=== PATIENT | female | born 1970 | race African-American/Black ===

== ENCOUNTER 2021-06-15 11:19 | Outpatient (REF) | payer OTHER, SELFPAY ==
--- NOTE | ~2021-06-15 | MM_ITS ---
EXAMINATION: MM SCREENING DIGITAL BREAST TOMOSYNTHESIS, BILATERAL CLINICAL INFORMATION: Screening. Asymptomatic. The lifetime risk of breast cancer based on the Tyrer-Cuzick Model is 8%. COMPARISON: Mammography: 06/09/2020, 01/31/2019, 01/11/2018 TECHNIQUE: Digital breast tomosynthesis is performed in both the craniocaudal and mediolateral oblique views along with computer-aided detection (CAD). Synthesized 2D images are generated from the tomosynthesis. Additional right CC, left CC x2 and bilateral MLO views are provided. FINDINGS: There are scattered areas of fibroglandular density (ACR BI-RADS breast composition Category b). There are no significant masses, abnormal calcifications, or other abnormalities. Breast tissue composition borders on predominantly fatty. Background stromal and fibroglandular densities are stable. The axilla and skin contours are unremarkable. No significant changes. MM/MM tomosynthesis screening BI IMPRESSION: No mammographic evidence of malignancy. ASSESSMENT: BI-RADS 1: Negative RECOMMENDATION: Routine annual mammography screening. This patient's information was entered into a reminder system with a target due date for their next mammogram.
== END 2021-06-15 11:20 | disposition home or self-care (01) ==
LOC: HO.MAMMO 11:19
PROVIDERS: Visit Provider Internal Medicine
DX: Z12.31 Encounter for screening mammogram for malignant neoplasm of breast (principal)
CPT/HCPCS: 77063; 77067

== ENCOUNTER 2022-06-17 09:57 | Outpatient (REF) | payer OTHER, SELFPAY ==
--- NOTE | ~2022-06-17 | MM_ITS ---
EXAMINATION: MM SCREENING DIGITAL BREAST TOMOSYNTHESIS, BILATERAL CLINICAL INFORMATION: Screening. Asymptomatic. The lifetime risk of breast cancer based on the Tyrer-Cuzick Model is 11%. COMPARISON: Mammography: 06/15/2021, 06/09/2020, 01/31/2019, 01/21/2018, 11/10/2016 TECHNIQUE: Digital breast tomosynthesis is performed in both the craniocaudal and mediolateral oblique views along with computer-aided detection (CAD). Synthesized 2D images are generated from the tomosynthesis. Additional left CC view is provided. FINDINGS: There are scattered areas of fibroglandular density (ACR BI-RADS breast composition Category b). Parenchymal pattern is similar to prior studies and there is no interval mass or architectural abnormality or developing density. Small stable nodularity close to skin surface nipple areolar margin is similar to prior studies. No abnormal calcifications. The axilla and skin contours are unremarkable. MM/MM tomosynthesis screening BI IMPRESSION: No mammographic evidence of malignancy. ASSESSMENT: BI-RADS 2: Benign RECOMMENDATION: Routine annual mammography screening. This patient's information was entered into a reminder system with a target due date for their next mammogram.
== END 2022-06-17 09:58 | disposition home or self-care (01) ==
LOC: HO.MAMMO 09:57
PROVIDERS: PCP Internal Medicine; Visit Provider Internal Medicine
DX: Z12.31 Encounter for screening mammogram for malignant neoplasm of breast (principal)
CPT/HCPCS: 77063; 77067

== ENCOUNTER 2023-06-24 09:40 | Outpatient (REF) | payer OTHER, SELFPAY | END 2023-06-24 09:41 | disposition home or self-care (01) | LOC: HO.MAMMO 09:40 | PROVIDERS: PCP Internal Medicine; Visit Provider Internal Medicine | DX: Z12.31 Encounter for screening mammogram for malignant neoplasm of breast (principal) | CPT/HCPCS: 77063; 77067 ==

== ENCOUNTER → 2023-06-24 10:00 | Outpatient (BNV) | payer OTHER, SELFPAY | PROVIDERS: PCP Internal Medicine; Visit Provider Radiology Diagnostic Radiology | DX: Z12.31 Encounter for screening mammogram for malignant neoplasm of breast (principal) | CPT/HCPCS: 77063; 77067 ==

== ENCOUNTER 2024-06-25 11:10 | Outpatient (REF) | payer OTHER, SELFPAY ==
--- NOTE | ~2024-06-25 | MM_ITS ---
EXAMINATION: MM SCREENING DIGITAL BREAST TOMOSYNTHESIS, BILATERAL CLINICAL INFORMATION: Screening. Asymptomatic. COMPARISON: Mammography: This study is compared with prior exams dating back to 2019. TECHNIQUE: Digital breast tomosynthesis is performed in both the craniocaudal and mediolateral oblique views along with computer-aided detection (CAD). Synthesized 2D images are generated from the tomosynthesis. FINDINGS: There are scattered areas of fibroglandular density (ACR BI-RADS breast composition Category b). There are no significant masses, abnormal calcifications, or other abnormalities. MM/MM tomosynthesis screening BI IMPRESSION: No mammographic evidence of malignancy. ASSESSMENT: BI-RADS BI-RADS 1 - Negative RECOMMENDATION: Routine annual mammography screening. 1 year F/U This examination should not preclude the clinical evaluation of a suspicious palpable abnormality. This patient's information was entered into a reminder system with a target due date for their next mammogram. Electronically signed by: Lety Hauser MD 07/23/2024 09:57 AM EDT
== END 2024-06-25 11:11 | disposition home or self-care (01) ==
LOC: HO.MAMMO 11:10
PROVIDERS: PCP Internal Medicine; Visit Provider Internal Medicine
DX: Z12.31 Encounter for screening mammogram for malignant neoplasm of breast (principal)
CPT/HCPCS: 77063; 77067

== ENCOUNTER → 2024-06-25 11:15 | Outpatient (BNV) | payer OTHER, SELFPAY | PROVIDERS: PCP Internal Medicine; Visit Provider Radiology Diagnostic Radiology | DX: Z12.31 Encounter for screening mammogram for malignant neoplasm of breast (principal) | CPT/HCPCS: 77063; 77067 ==

== ENCOUNTER 2024-07-06 09:49 | Outpatient (AMB) | payer OTHER, SELFPAY ==
--- NOTE | 2024-07-06 09:50 | A.OFFVIS_ITS ---
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 Patient states she'd like to discuss MRI results an discuss treatment plans for pain relief. IMPRESSION: 1. Proximal patellar tendinosis. 2. Mild trochlea chondrosis. 3. No meniscus or ligament tear. 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 Patient states she'd like to discuss MRI results. She had an MRI of her knee and her hip because of some radiating pain but that has resolved and she feels was likely secondary to fibroids. Her right knee is not really bothering her much. She goes to the gym and does exercises and there is occasional pain but she really can not describe any significant disability. She is more worried that she did not understand clearly what the results were MRI were. Physical Exam Vital Signs: BMI result Body Mass Index 35.5 Extrem Other: Normal gait Full range of motion right knee No effusion Results Reviewed Results Reviewed: I personally reviewed the MR images. IMPRESSION: 1. Proximal patellar tendinosis. 2. Mild trochlea chondrosis. 3. No meniscus or ligament tear. Assessment & Plan Assessment & Plan (1) Chondromalacia patellae of right knee: Code(s): M22.41 - Chondromalacia patellae, right knee Category: Medical Plan: This is a 53-year-old woman with some chondral softening of the patellofemoral joint on MRI. I explained this to her and described treatment options of which I do not really recommend anything except continue on activity as tolerated. I probably would recommend that she does not try deep heavy squatting with weight. Having said that she is pretty asymptomatic and I do not think any additional treatment is required. She understands and will let me know if something changes. Coding Level of Care Code New Pt Level 3 (61132) Diagnoses Chondromalacia patellae of right knee M22.41
[2024-07-06 09:52] VITALS: BMI 35.5
== END 2024-07-06 12:34 | disposition home or self-care (01) ==
PROVIDERS: PCP Internal Medicine; Visit Provider Orthopaedic Surgery
DX: M22.41 Chondromalacia patellae, right knee (principal)
CPT/HCPCS: 99203

== ENCOUNTER → 2024-07-06 09:49 | Outpatient (BNVA) | payer OTHER, SELFPAY | PROVIDERS: PCP Internal Medicine; Visit Provider Orthopaedic Surgery | DX: M22.41 Chondromalacia patellae, right knee (principal) | CPT/HCPCS: 99202 ==

== ENCOUNTER 2025-08-08 07:59 | Outpatient (REF) | payer OTHER, SELFPAY ==
--- OUTSIDE RECORDS SUMMARY | 2025-08-08 08:02 | XMS_ITS | Clinical Summary ---
Author Organization [facility], Address [address] [place] [address] [place] [address] Phone Care Team Providers Care Handle Finisher Name Role Phone Tony Castaneda MD Primary Care Provider Unav ailable Allergies No known active allergies Medications metFORMIN XR (GLUCOPHATE-XR) 500 MG 24 hr tablet Take 500 mg by mouth 1 (one) time each day with dinner 04/04/2020 Active senna (SENOKOT) 8.6 MG tablet Take 2 tablets by mouth 1 (one) time each day Active HealthyLax 17 g packet TAKE 17G MIXED WITH 8 OUNCES OF WATER, JUICE, SODA, COFFEE OR TEA ONCE A DAY NEEDED FOR CONSTIPATION . 01/28/2022 Active docusate sodium (COLACE) 100 MG capsule Take 100 mg by mouth in the morning and 100 mg in the evening. Active atorvastatin (Lipitor) 20 MG tablet Take 1 tablet (20 mg total) by mouth 1 (one) time each day 90 tablet 3 02/18/2025 6 Active carvedilol (COREG) 25 MG tablet Take 1 tablet (25 mg total) by mouth in the morning and 1 tablet (25 mg total) in the evening. 180 tablet 3 05/28/2025 6 Active NIFEdipine XL (PROCARDIA XL) 30 MG 24 hr tablet Take 1 tablet (30 mg total) by mouth in the morning and 1 tablet (30 mg total) in the evening. Do not crush, chew, or split. 180 tablet 3 05/28/2025 6 Active fish oil (OMEGA-3) 500 MG capsule Take 1 capsule (500 mg total) by mouth 1 (one) time each day 90 capsule 3 06/04/2025 Active hydroCHLOROthia zide 12.5 MG tablet Take 1 tablet (12.5 mg total) by mouth 1 (one) time each day 90 tablet 3 06/04/2025 Active hydrALAZINE 50 MG tablet Take 1 tablet (50 mg total) by mouth in the morning and 1 tablet (50 mg total) at noon and 1 tablet (50 mg total) in the evening. Take with meals. 270 tablet 3 06/04/2025 Active glipiZIDE (GLUCOTROL) 5 MG tablet Take 1 tablet (5 mg total) by mouth in the morning and 1 tablet (5 mg total) in the evening. Take before meals. 180 tablet 3 06/04/2025 Active dilTIAZem CD (CARDIZEM CD) 240 MG 24 hr capsule Take 1 capsule (240 mg total) by mouth at bed time 90 capsule 3 06/04/2025 Active ergocalciferol (Drisdol) 1.25 MG (17081 UT) capsule Take 1 capsule (50,000 Units total) by mouth 1 (one) time per week 12 capsule 3 06/05/2025 Active Active Problems Problem Noted Date Diagnosed Date Stage 3b chronic kidney disease 12/11/2024 Renal disorder due to type 2 diabetes mellitus 1 12/21/2019 Proteinuria 04/11/2020 Stage 3a chronic kidney disease 04/08/2020 Overview (11/10/2020): Update for Diagnosis Load Hypertensive disorder 04/08/2020 Type 2 diabetes mellitus Overview (10/25/2022): Nephropathy Resolved Problems Problem Noted Date Diagnosed Date Resolved Date Other iron deficiency anemia 10/20/2020 05/01/2021 Hypertriglyceridemia 10/20/2020 021 Other iron deficiency anemia 04/14/2020 05/01/2021 IgA nephropathy 04/11/2020 05/01/2021 Acute nontraumatic kidney injury 04/08/2020 05/01/2021 Sleep apnea 04/08/2020 05/01/2021 Diabetes mellitus 04/21/2015 05/01/2021 Obesity 04/21/2015 05/01/2021 Encounters Date Type Department Care Team Description 06/11/2025 2:15 PM EDT Office Visit [facility] [address] [place] [address] Chandan Pa MD Stage 3a chronic kidney disease (HCC) (Primary Dx); Renal disorder due to type 2 diabetes mellitus <Other diabetic kidney complication> (HCC); Hypertensive disorder 06/05/2025 Refill [facility] [address] [place] [address] Ward, Erika 06/04/2025 Orders Only [facility] [address] [place] [phone] Erika Ward Type 2 diabetes mellitus, not otherwise specified (HCC) (Primary Dx); Renal disorder due to type 2 diabetes mellitus <Diabetic nephropathy> (HCC); Stage 3b chronic kidney disease (HCC); Vitamin D deficiency, not otherwise specified 06/04/2025 Refill [facility] [address] Po [address] [address] [place] [phone] Ward, Erika 06/04/2025 Refill [facility] [address] [place] [phone] Ward, Erika 05/28/2025 Orders Only [facility] [address] [place] [address] WardErika valdovinos 05/28/2025 Refill [facility] [address] [place] [address] Erika Ward from Last 3 Months Family History Medical History Relation Comments Diabetes Mother Hypertension Mother Relation Status Comments Father Alive Mother Social History Tobacco Use Types Packs/Day Years Used Date Smoking Tobacco: Never Tobacco Cessation:Counseling Given: Not Answered Alcohol Use Standard Drinks/Week Comments Yes 0 (1 standard drink = 0.6 oz pure alcohol) Alcoholic Drinks/day: Occasional social drink Comments Unknown Sex and Gender Information Value Date Recorded Sex Assigned at Not on file Legal Sex Female 4:34 PM EST Gender Identity Not on file Sexual Orientation Not on file Last Filed Vital Signs Vital Sign Reading Time Taken Comments Blood Pressure 152/92 04/18/2023 5:30 PM EDT Pulse 77 10/11/2019 12:00 PM EST Temperature - - Respiratory Rate 16 10/11/2019 12:00 PM EST Oxygen Saturation - - Inhaled Oxygen Concentration - - Weight 105 kg (231 lb 9.6 oz) 04/18/2023 5:30 PM EDT Height 167.6 cm (5' 6 ) 04/18/2023 5:30 PM EDT Body Mass Index 37.38 04/18/2023 5:30 PM EDT Plan of Treatment Upcoming Encounters Date Type Department Care Team (Late st Contact Info) Description 12/24/2025 3:00 PM EST Office Visit [facility], [address] [place] [phone] Chandan Pa MD [address] [place] [phone] Health Maintenance Due Date Last Done Comments Breast Cancer Screening 1971 Pneumococcal Vaccine: 50+ Ye ars (1 of 2 - PCV) 1990 Diabetes: Hemoglobin A1C 09/06/2025 025, 03/28/2025, 12/13/2024, Additional history exists Colorectal Cancer Screening: Annual FOBT Discontinued Colorectal Cancer Screening: Colonoscopy Discontinued Colorectal Cancer Screening: Sigmoidoscopy Discontinued Diabetes: Ophthalmology Exam Discontinued Diabetes: Pedal Pulse Checked Discontinued Diabetes: Sensory Foot Exam Discontinued Diabetes: Visual Foot Exam Discontinued Hepatitis B Vaccine Discontinued Influenza Vaccine Discontinued Procedures Procedure Name Priority Date/Time Associated Diagnosis Comments HEMOGLOBIN A1C Routine 06/06/2025 8:39 AM EDT Type 2 diabetes mellitus, not otherwise specified (HCC) Renal disorder due to type 2 diabetes mellitus <Diabetic nephropathy> (HCC) LIPID PANEL Routine 06/06/2025 8:39 AM EDT Stage 3b chronic kidney disease (HCC) PTH, INTACT Routine 06/06/2025 8:39 AM EDT Stage 3b chronic kidney disease (HCC) URIC ACID Routine 06/06/2025 8:39 AM EDT Stage 3b chronic kidney disease (HCC) VITAMIN D 25 HYDROXY Routine 06/06/2025 8:39 AM EDT Vitamin D deficiency, not otherwise specified PROTEIN / CREATININE RATIO, URINE Routine 06/06/2025 8:39 AM EDT Stage 3b chronic kidney disease (HCC) URINALYSIS WITH MICROSCOPIC Routine 06/06/2025 8:39 AM EDT Stage 3b chronic kidney disease (HCC) RENAL FUNCTION PANEL Routine 06/06/2025 8:39 AM EDT Stage 3b chronic kidney disease (HCC) CBC AND DIFFERENTIAL Routine 06/06/2025 8:39 AM EDT Stage 3b chronic kidney disease (HCC) MICROSCOPIC EXAMINATION - DO NOT USE Routine 06/06/2025 8:39 AM EDT from Last 3 Months Results * (ABNORMAL) Microscopic Examination (06/06/2025 8:39 AM EDT) WBC, Urine 0-5 0 - 5 /hpf [facility] RBC, Urine None seen 0 - 2 /hpf [facility] Squamous Epithelial, Urine >10(A) 0 - 10 /hpf [facility] Casts None seen None seen /lpf [facility] Bacteria, Urine Few None seen/Few [facility] 06/06/2025 8:39 AM EDT 06/06/2025 us Chandan Pa MD LAB MICROBIOLOGY - GENERAL ORDER SONNY Final Result [facility] [address] [place] [address] * Urine Protein / creatinine ratio (06/06/2025 8:39 AM EDT) Creatinine, Ur 143.9 Not Estab. mg/dL [facility] Protein, Ur 27.5 Not Estab. mg/dL [facility] Urine Protein/Creatin ine Ratio 191 0 - 200 mg/g [facility] Urine Urine specimen obtained by clean catch procedure / Unknown 06/06/2025 8:39 AM EDT 06/06/2025 Chandan Pa MD LAB URINE ORDERABLES Final Resul t [facility] [address] [place] [phone] * Vitamin D 25 hydroxy (06/06/2025 8:39 AM EDT) Vitamin D, 25-OH, Total 49.8 30.0 - 100.0 ng/mL [facility] Comment: Vitamin D deficiency has been defined by the [employer] of [employer] and an Endocrine Society practice guideline as a level of serum 25-OH vitamin D less than 20 ng/mL (1,2). The Endocrine Society went on to further define vitamin D insufficiency as a level between 21 and 29 ng/mL (2). 1. IOM ([employer] of Medicine). 2010. Dietary reference intakes for calcium and D. [place]: The National Academies Press. 2. Farhat MF, Jaime NC, Nino PANG, et al. Evaluation, treatment, and prevention of vitamin D deficiency: an Endocrine Society clinical practice guideline. JCEM. 2010; 96(7):1911-30. Blood Venous blood / Unknown 06/06/2025 8:39 AM EDT 06/06/2025 Chandan Pa MD LAB BLOOD ORDERABLES Final Resul t [facility] [address] [place] [address] * (ABNORMAL) Urinalysis with microscopic (06/06/2025 8:39 AM EDT) Specific [place], Urine 1.016 1.005 - 1.030 [facility] pH Urine 6.0 5.0 - 7.5 [facility] Color, Urine Yellow Yellow [facility] Appearance Urine Cloudy(A) Clear [facility] WBC Esterase Urine Negative Negative [facility] Protein, Ur 1+(A) Negative/Tra ce [facility] Glucose, Ur Negative Negative [facility] Ketones, Urine Negative Negative [facility] Blood Urine Negative Negative [facility] Bilirubin Urine Negative Negative [facility] Urobilinogen Urine 0.2 0.2 - 1.0 mg/dL [facility] [phone] Nitrite, Urine Negative Negative [facility] Microscopic Examination See below: [facility] Comment:Microscopic was roldan cated and was performed. Urine Urine specimen obtained by clean catch procedure / Unknown 06/06/2025 8:39 AM EDT 06/06/2025 us Chandan Pa MD LAB URINE ORDERABLES Final Resul t [facility] [address] [place] [address] * CBC and differential (06/06/2025 8:39 AM EDT) [facility] WBC 6.5 3.4 - 10.8 x10E3/uL [facility] RBC 4.87 3.77 - 5.28 x10E6/uL [facility] Hemoglobin 13.9 11.1 - 15.9 g/dL [facility] Hematocrit 43.3 34.0 - 46.6 % [facility] MCV 89 79 - 97 fL [facility] MCH 28.5 26.6 - 33.0 pg [facility] MCHC 32.1 31.5 - 35.7 g/dL [facility] RDW 14.8 11.7 - 15.4 % [facility] Platelets 314 150 - 450 x10E3/uL [facility] Neutrophils Relative 43 Not Estab. % [facility] Lymphocytes Relative 40 Not Estab. % [facility] Monocytes 12 Not Estab. % [facility] Eosinophils Relative 4 Not Estab. % [facility] Basophils Relative 1 Not Estab. % [facility] Neutrophils Absolute 2.9 1.4 - 7.0 x10E3/uL [facility] Lymphocytes Absolute 2.6 0.7 - 3.1 x10E3/uL [facility] Monocytes Absolute 0.8 0.1 - 0.9 x10E3/uL [facility] Eosinophils Absolute 0.2 0.0 - 0.4 x10E3/uL [facility] Basophils Absolute 0.0 0.0 - 0.2 x10E3/uL [facility] Immature Granulocytes 0 Not Estab. % [facility] Immature Grans (Absolute) 0.0 0.0 - 0.1 x10E3/uL [facility] Blood Venous blood / Unknown 06/06/2025 8:39 AM EDT 06/06/2025 us Chandan Pa MD LAB BLOOD ORDERABLES Final Resul t [facility] [address] [place] [address] * (ABNORMAL) Uric acid (06/06/2025 8:39 AM EDT) Pathologist [facility] Uric Acid 9.6(H) 3.0 - 7.2 mg/dL [facility] Comment:Therapeutic target f or gout patients: <6.0 Blood Venous blood / Unknown 06/06/2025 8:39 AM EDT 06/06/2025 us Chandan Pa MD LAB BLOOD ORDERABLES Final Resul t Performing Organization Address City/[facility]/ZIP Co de Phone Number [facility] [address] [place] [address] * PTH, intact (06/06/2025 8:39 AM EDT) Pathologist [facility] PTH 59 15 - 65 pg/mL [facility] Blood Venous blood / Unknown 06/06/2025 8:39 AM EDT 06/06/2025 us Chandan Pa MD LAB BLOOD ORDERABLES Final Resul t Performing Organization Address City/[facility] Co de Phone Number [facility] [address] [place] [address] * (ABNORMAL) Hemoglobin A1c (06/06/2025 8:39 AM EDT) Pathologist [facility] Hemoglobin A1C 6.3(H) 4.8 - 5.6 % [facility] Comment: Prediabetes: 5.7 - 6.4 Diabetes: >6.4 Glycemic control for adults with diabetes: <7.0 Blood Venous blood / Unknown 06/06/2025 8:39 AM EDT 06/06/2025 us Chandan Pa MD LAB BLOOD ORDERABLES Final Resul t [facility] [address] [place] [phone] * (ABNORMAL) Renal function panel (06/06/2025 8:39 AM EDT) Pathologist [facility] Glucose 100(H) 70 - 99 mg/dL [facility] BUN 14 6 - 24 mg/dL [facility] Creatinine 1.29(H) 0.57 - 1.00 mg/dL [facility] eGFR CKD-EPI CR 2020 50(L) >59 mL/min/1.7 3 [facility] BUN/Creatinine Ratio 11 9 - 23 [facility] Sodium 141 134 - 144 mmol/L [facility] Potassium 3.5 3.5 - 5.2 mmol/L [facility] Chloride 103 96 - 106 mmol/L [facility] Bicarbonate (CO2) 21 20 - 29 mmol/L [facility] Calcium 9.7 8.7 - 10.2 mg/dL [facility] Phosphorus 3.0 3.0 - 4.3 mg/dL [facility] Albumin 4.2 3.8 - 4.9 g/dL [facility] Blood Venous blood / Unknown 06/06/2025 8:39 AM EDT 06/06/2025 Chandan Pa MD LAB BLOOD ORDERABLES Final Resul t [facility] [address] [place] [phone] * (ABNORMAL) Lipid panel (06/06/2025 8:39 AM EDT) Cholesterol 155 100 - 199 mg/dL [facility] Triglycerides 149 0 - 149 mg/dL [facility] HDL 33(L) >39 mg/dL [facility] VLDL Cholesterol Ever 26 5 - 40 mg/dL [facility] LDL Calculated 96 0 - 99 mg/dL [facility] Blood Venous blood / Unknown 06/06/2025 8:39 AM EDT 06/06/2025 Chandan Pa MD LAB BLOOD ORDERABLES Final Resul t Performing Organization Address City/[facility]/ZIP Co de Phone Number [facility] [address] [place] [phone] from Last 3 Months Insurance [facility] ([id number]) Care Teams Handle Finisher Relationship Specialty Start Date End Date Tony Castaneda MD PCP - General 09/11/19
--- OUTSIDE RECORDS SUMMARY | 2025-08-08 08:02 | XMS_ITS | Encounter Summary ---
Author Organization [employer] Address [address] [place] [address] [address] [place] [address] Care Team Providers Care Therapeutic Riding Instructor Name Role Phone Tony eMjias MD Primary Care Provide r Encounter Details Date Type Department Care Team (Late st Contact Info) Description 07/18/2023 Abstract [facility] MEDICINE [address] [place] [address] Tony Mejias MD [address] [place] [address] Social History Tobacco Use Types Packs/Day Years Used Date Smoking Tobacco: Never Passive Smoke Exposure: Never Smokeless Tobacco: Never Alcohol Use Standard Drinks/Week Comments Never 0 (1 standard drink = 0.6 oz pur e alcohol) Comments Unknown Sex and Gender Information Value Date Recorded Sex Assigned at Female 09/06/2022 10:22 AM EDT Legal Sex Female 10:22 AM EDT Gender Identity Female 09/06/2022 10:22 AM EDT Sexual Orientation Lesbian or Jeronimo 09/06/2022 10 :22 AM EDT documented as of this encounter Plan of Treatment Upcoming Encounters Date Type Department Care Team (Late st Contact Info) Description 08/28/2025 3:00 PM EDT Office Visit [facility] ADULT DENTAL [address] [place] [address] Amado Vincent DMD [address] [place] [address] 10/01/2025 10:15 AM EST Office Visit [facility] [address] [place] [address] Lisa Ruiz [address] [place] [address] documented as of this encounter Procedures Procedure Name Priority Date/Time Associated Diagnosis Comments MAMMOGRAPHY Routine 06/24/2023 documented in this encounter Results * Mammography (06/24/2023) Mammogram BI-RADS BI-RADS 1 - Negative Anatomical Region Laterality Modality Other us Tony Morgan MD HEALTH MAINTENANCE nal Result documented in this encounter Visit Diagnoses Not on filedocumented in this encounter Care Teams Therapeutic Riding Instructor Relationship Specialty Start Date End Date Tony Mejias MD [address] [place] [address] PCP - General Internal Medicine 07/29/14 documented as of this encounter
--- OUTSIDE RECORDS SUMMARY | 2025-08-08 08:03 | XMS_ITS | Encounter Summary ---
Author Organization [employer] Address [address] [place] [address] 7 [place] [address] Care Team Providers Care Senior Java Architect Name Role Phone Tony Mejias MD Primary Care Provide r Encounter Details Date Type Department Care Team (Latest Contact Info) Description 01/23/2021 Abstract [facility] CONVERSIONS Dental, Provider, DDS Social History Tobacco Use Types Packs/Day Years Used Date Smoking Tobacco: Never Assessed Comments Unknown Sex and Gender Information Value Date Recorded Sex Assigned at Female 09/06/2022 10:22 AM EDT Legal Sex Female 10:22 AM EDT Gender Identity Female 09/06/2022 10:22 AM EDT Sexual Orientation Lesbian or Jeronimo 09/06/2022 10 :22 AM EDT documented as of this encounter Plan of Treatment Upcoming Encounters Date Type Department Care Team ( st Contact Info) Description 08/28/2025 3:00 PM EDT Office Visit [facility] ADULT DENTAL [address] [place] [address] Amado Vincent, DMD [address] [place] [address] 10/01/2025 10:15 AM EST Office Visit [facility] ADULT DENTAL [address] [place] [address] Lisa Ruiz [address] [place] [address] documented as of this encounter Visit Diagnoses Not on filedocumented in this encounter Care Teams Senior Java Architect Relationship Specialty Start Date End Date Tony Mejias MD [address] [place] [address] PCP - General Internal Medicine 07/29/14 documented as of this encounter
--- OUTSIDE RECORDS SUMMARY | 2025-08-08 08:03 | XMS_ITS | Encounter Summary ---
Author Organization [facility], Address [address] [place] [address] Phone Care Team Providers Care Rear Load Truck Driver Name Role Phone Tony Castaneda MD Primary Care Provider Unav ailable Encounter Details Date Type Department Care Team (Late Contact Info) Description 07/14/2022 Documentation Only [facility] [address] [place] [address] Blanca Snow PA [address] [place] [address] Social History Tobacco Use Types Packs/Day Years Used Date Smoking Tobacco: Never Alcohol Use Standard Drinks/Week Comments Yes 0 (1 standard drink = 0.6 oz pure alcohol) Alcoholic Drinks/day: Occasional social drink Comments Unknown Sex and Gender Information Value Date Recorded Sex Assigned at Not on file Legal Sex Female 4:34 PM EST Gender Identity Not on file Sexual Orientation Not on file documented as of this encounter Plan of Treatment Upcoming Encounters Date Type Department Care Team (Late Contact Info) Description 12/24/2025 3:00 PM EST Office Visit [facility] [address] [place] [address] Chandan Pa MD [address] [place] [phone] documented as of this encounter Visit Diagnoses Not on filedocumented in this encounter Care Teams Rear Load Truck Driver Relationship Specialty Start Date End Date Tony Castaneda MD PCP - General 09/11/19 documented as of this encounter
--- OUTSIDE RECORDS SUMMARY | 2025-08-08 08:03 | XMS_ITS | Encounter Summary ---
Author Organization [facility] [place], Address [address] [place] [address] Phone Care Team Providers Care Christian Science Healer Name Role Phone Tony Castaneda MD Primary Care Provider Unav ailable Encounter Details Date Type Department Care Team (Late st Contact Info) Description 05/12/2022 Documentation Only [facility] [address] [place] [address] Angelita Grimm [address] [place] [address] Social History Tobacco Use Types Packs/Day Years [...] Visit [facility] [address] [place] [address] Chandan Pa MD [address] [place] [address] [place] [address] documented as of this encounter Visit Diagnoses Not on filedocumented in this encounter Care Teams Christian Science Healer Relationship Specialty Start Date End Date Tony Castaneda MD PCP - General 09/11/19 documented as of this encounter
--- OUTSIDE RECORDS SUMMARY | 2025-08-08 08:03 | XMS_ITS | Encounter Summary ---
Author Organization [employer] Address [address] [facility] [address] [facility] 7t [place] [address] Care Team Providers Care Senior Qa Analyst Name Role Phone Tony Mejias MD Primary Care Provide r Encounter Details Date Type Department Care Team (Late st Contact Info) Description 07/04/2023 Telephone [facility] ADULT DENTAL [address] [place] [address] Izabella Cleary, DDS [address] [place] [address] Social History Tobacco Use Types Packs/Day Years [...] AM EDT documented as of this encounter Miscellaneous Notes * Telephone Encounter - Janny Judge - 07/04/2023 11:59 AM EDT Giovana Theodore 1970 Patient called in and stated if a P.A can be sent to her insurance [employer] for more cleanings appt due to her periodontal disease. Please advise documented in this encounter Plan of Treatment Upcoming Encounters Date Type Department Care Team (Late st Contact Info) Description 08/28/2025 3:00 PM EDT Office Visit [facility] ADULT DENTAL [address] [place], [place] [phone] Amado Vincent, DMD [address] [place] [address] 10/01/2025 10:15 AM EST Office Visit [facility] ADULT DENTAL [address] [place] [address] Lisa Ruiz [address] [place] [address] documented as of this encounter Visit Diagnoses Not on filedocumented in this encounter Care Teams Senior Qa Analyst Relationship Specialty Start Date End Date Tony Mejias MD [address] [place] [address] PCP - General Internal Medicine 07/29/14 documented as of this encounter
--- OUTSIDE RECORDS SUMMARY | 2025-08-08 08:03 | XMS_ITS | Encounter Summary ---
Author Organization [facility] [place], Address [address] [place] [address] Phone Care Team Providers Care Application Support Consultant Name Role Phone Tony Castaneda MD Primary Care Provider Unav ailable Encounter Details Date Type Department Care Team (Late Contact Info) Description 08/25/2022 Documentation Only [facility] [address] [place] [address] Blanca Snow PA [address] [place] [phone] Social History Tobacco Use Types Packs/Day Years [...] Visit [facility] [address] [address] Chandan Pa MD [address] [place] [phone] documented as of this encounter Visit Diagnoses Not on filedocumented in this encounter Care Teams Application Support Consultant Relationship Specialty Start Date End Date Tony Castaneda MD PCP - General 09/11/19 documented as of this encounter
--- OUTSIDE RECORDS SUMMARY | 2025-08-08 08:03 | XMS_ITS | Encounter Summary ---
Author Organization [facility] [place], Address [address] [place] [address] Phone Care Team Providers Care Director Veterinary Name Role Phone Tony Castaneda MD Primary Care Provider Unav ailable Encounter Details Date Type Department Care Team (Late st Contact Info) Description 01/04/2025 Documentation Only [facility] [address] [address] Angelita Grimm [address] [place] [address] Social History Tobacco Use Types [...] Visit [facility] [address] [place] [address] Chandan Pa MD [address] [place] [address] [place] [address] documented as of this encounter Visit Diagnoses Not on filedocumented in this encounter Care Teams Director Veterinary Relationship Specialty Start Date End Date Tony Castaneda MD PCP - General 09/11/19 documented as of this encounter
--- OUTSIDE RECORDS SUMMARY | 2025-08-08 08:03 | XMS_ITS | Encounter Summary ---
Author Organization [employer] Address [address] [place] [address] 7 [place] [address] Care Team Providers Care Psychometrician Name Role Phone Tony Mejias MD Primary Care Provide r Reason for Visit * Reason Onset Date Comments Referral 03/29/2023 Encounter Details Date Type Department Care Team (Late st Contact Info) Description 03/29/2023 Telephone [facility] MEDICINE [address] [place], [place] [phone] Tony Mejias MD [address] [place] [address] Referral Social History Tobacco Use Types Packs/Day Years [...] encounter Miscellaneous Notes * Telephone Encounter - Franko Garcia - 03/29/2023 2:35 PM EDT Tc from pt requesting status on neurologist referral. Please contact pt at [phone] documented in this encounter Plan of Treatment Upcoming Encounters Date Type Department Care Team (Late st Contact Info) Description 08/28/2025 3:00 PM EDT Office Visit [facility] ADULT DENTAL [address] [place], [place] [phone] Amado Vincent, JN [address] [place] [address] 10/01/2025 10:15 AM EST Office Visit [facility] ADULT DENTAL [address] [place] [address] Lisa Ruiz [address] [place] [address] documented as of this encounter Visit Diagnoses Not on filedocumented in this encounter Care Teams Psychometrician Relationship Specialty Start Date End Date Tony Mejias MD [address] [place] [address] PCP - General Internal Medicine 07/29/14 documented as of this encounter
--- OUTSIDE RECORDS SUMMARY | 2025-08-08 08:03 | XMS_ITS | Patient Health Record ---
Author Organization [facility] Address [address] [place] [address] Care Team Providers Care White Sugar Syrup Operator Name Role Phone Leonel Morgan MD, Tony Primary Care Provide r Unavailable Avery Rafaela Unavailable [phone] Mili Aguilera Unavailable [phone] Dragan Ingram Unavailable [phone] Allergies No Known Allergies Results Component Value Reference Range Notes HEMOGLOBIN A1C (GLYCOHEMOGLO BIN) Reviewed date:05/29/2025 09:50:31 AM Interpretation: Performing Lab: Notes/Report: HEMOGLOBIN A1C % (HH) 6.6 HEMOGLOBIN A1C (GLYCOHEMOGLO BIN) Reviewed date:07/31/2025 09:32:12 AM Interpretation: Performing Lab: Notes/Report: HEMOGLOBIN A1C % (HH) 6.3 Reason For Referral No Information Medications Medication SIG (Take, Route, Frequency, Duration) Notes Start Date End Date Status [place]-3 Fish Oil 500 MG Oral; Duration: 90 Days Active Polyethylene Glycol 3350 17 GM Oral; Duration: 24 Days Acti ve Vitamin D (Ergocalciferol) 1.25 MG (34853 UT) TAKE 1 CAPSULE BY MOUTH ONCE A WEEK Oral; Duration: 90 Days Active NIFEdipine ER Osmotic Release 30 MG Oral; Duration: 90 Days Act jeanna hydrALAZINE HCl 50 MG Oral; Duration: 90 Days Active glipiZIDE 5 MG TAKE ONE TABLET BY M OUTH TWICE A DAY BEFORE MEALS Oral; Duration: 90 Days Active Carvedilol 25 MG Oral; Duration: 90 Days Active Atorvastatin Calcium 20 MG Oral; Duration: 90 Days Active Aspirin Low Dose 81 MG TAKE ONE TABLET B Y MOUTH EVERY MORNING Oral; Duration: 90 Days Active glipiZIDE 5 MG Oral; Duration: 90 Days Active dilTIAZem HCl ER Coated Beads 240 MG TAKE ONE CAPSULE BY MOUTH DAILY AT BEDTIME Oral; Duration: 90 Days Active Vitamin D (Ergocalciferol) 1.25 MG (12169 UT) Oral; Duration: 90 Days Active Immunizations Vaccine Route Administration Date Status Comme nts Influenza Unknown 05/29/2025 Refused Social History Tobacco Use: Social History Observation Description Date Details (start date - stop date) Never Smoker NA - NA Tobacco use other than smoking: Question Answer Notes Are you an other tobacco user? No Tobacco Control (Standard) Question Answer Notes Tobacco use: Nonsmoker Additional Findings: Tobacco non-user Current no nsmoker AUDIT-C (Standard) Question Answer Notes Did you have a drink containing alcohol in the p ast year? No Points 0 Interpretation Negative Problems Problem Type SNOMED Code ICD Code Onset Dates Problem Status W/U Status Risk Notes Problem Acquired hammer toe of right foot (0525612753201366 ) Other hammer toe(s) (acquired), right foot (M20.41) Active confirmed Problem Acquired hammer toe of left foot (4555072548124369 ) Other hammer toe(s) (acquired), left foot (M20.42) Active confirmed Problem Polyneuropathy due to type 2 diabetes mellitus (393609597) Type 2 diabetes mellitus with diabetic polyneuropathy (E11.42) Active confirmed Vital Signs Blood pressure diastolic 80 mm Hg 05/29/2025 Height 5ft 6in in 07/31/2025 Blood pressure systolic 120 mm Hg 05/29/2025 Weight 215 lbs 07/31/2025 BMI 34.7 kg/m2 07/31/2025 Procedures Procedure Date Ordered Date Performed Result Body Sit e 96021-LKCGFSA NAIL, 1-5 10/02/2024 N/A 31303-SILU SKIN LESIONS, 2 TO 4 10/02/2024 N/A I3227-AHMOPXQA DYSTROPHIC NAILS ANY # 10/02/2024 N/A 13695-QYFUXQG NAIL, 1-5 12/06/2024 N/A 06709-VEJI SKIN LESIONS, 2 TO 4 12/06/2024 N/A C2851-DETKEUNI DYSTROPHIC NAILS ANY # 12/06/2024 N/A 91937-YOIBYVQ NAIL, 1-5 02/20/2025 N/A 41273-CGNM SKIN LESIONS, 2 TO 4 02/20/2025 N/A H0342-TQSLKELN DYSTROPHIC NAILS ANY # 02/20/2025 N/A 74465-YUDWOLO NAIL, 1-5 05/29/2025 N/A 72745-TXMO SKIN LESIONS, 2 TO 4 05/29/2025 N/A J2408-IPLPYPRY DYSTROPHIC NAILS ANY # 05/29/2025 N/A 83972-AHBNYLA NAIL, 1-5 07/31/2025 N/A 21753-IXHX SKIN LESIONS, 2 TO 4 07/31/2025 N/A L7679-YNLBOPAP DYSTROPHIC NAILS ANY # 07/31/2025 N/A Encounters Encounter Location Date Provider Diagnosis [address] [address] 10/02/2024 Dragan Ingram Pain in left foot M79.672 ; Hallux valgus (acquired), right foot M20.11 ; Hallux valgus (acquired), left foot M20.12 ; Pain in right foot M79.671 and Type 2 diabetes mellitus with diabetic polyneuropathy E11.[address] [address] 12/06/2024 Dragan Ingram Type 2 diabetes mellitus with diabetic polyneuropathy E11.[address] [address] 02/20/2025 Rafaela Black Type 2 diabetes mellitus with diabetic polyneuropathy E11.42 ; Tinea unguium B35.1 and Xerosis of skin L85.[address] [address] 05/29/2025 Rafaela Black Type 2 diabetes mellitus with diabetic polyneuropathy E11.42 ; Tinea unguium B35.1 ; Xerosis of skin L85.3 ; Other hammer toe(s) (acquired), right foot M20.41 and Other hammer toe(s) (acquired), left foot M20.[address] [address] 07/31/2025 Rafaela Black Type 2 diabetes mellitus with diabetic polyneuropathy E11.42 and Tinea unguium B35.[address] [address] 08/23/2024 Mili Aguilera [facility] [place] [address] [place] [address] 08/27/2024 Dragan Ingram [facility] [address] [address] 01/28/2025 Dragan Ingram Assessments Encounter Date Diagnosis (ICD Code) Assessment Notes Treatment Notes Treatment Clinical Notes Section Notes 10/02/2024 Pain in left foot (ICD-10 - M79.672) 10/02/2024 Hallux valgus (acquired), right foot (ICD-10 - M20.11) 12/06/2024 Type 2 diabetes mellitus with diabetic polyneuropathy (ICD-10 - E11.42) 02/20/2025 Type 2 diabetes mellitus with diabetic polyneuropathy (ICD-10 - E11.42) 02/20/2025 Tinea unguium (ICD-10 - B35.1) 05/29/2025 Type 2 diabetes mellitus with diabetic polyneuropathy (ICD-10 - E11.42) 05/29/2025 Tinea unguium (ICD-10 - B35.1) 07/31/2025 Type 2 diabetes mellitus with diabetic polyneuropathy (ICD-10 - E11.42) 07/31/2025 Tinea unguium (ICD-10 - B35.1) 05/29/2025 Xerosis of skin (ICD-10 - L85.3) 02/20/2025 Xerosis of skin (ICD-10 - L85.3) 10/02/2024 Hallux valgus (acquired), left foot (ICD-10 - M20.12) 10/02/2024 Pain in right foot (ICD-10 - M79.671) 05/29/2025 Other hammer toe(s) (acquired), right foot (ICD-10 - M20.41) Patient Educated with: DIABETIC FOOT CARE INSTRUCTIONS. pdf (DIABETIC FOOT CARE INSTRUCTIONS. pdf) 05/29/2025 Other hammer toe(s) (acquired), left foot (ICD-10 - M20.42) 10/02/2024 Type 2 diabetes mellitus with diabetic polyneuropathy (ICD-10 - E11.42) 07/31/2025 Other Plan Of Treatment Pending Test Test Name Order Date 44692-TJQWKMA NAIL, 1-5 10/02/2024 88516-HGNPDNI NAIL, 1-5 12/06/2024 48023-OCCVJRU NAIL, 1-5 02/20/2025 83937-WHQDVEZ NAIL, 1-5 05/29/2025 72965-CNKWYVZ NAIL, 1-5 07/31/2025 76658-LQTK SKIN LESIONS, 2 TO 4 07/31/20 07865-NNTI SKIN LESIONS, 2 TO 4 05/29/20 93455-ZEBR SKIN LESIONS, 2 TO 4 02/21/20 65776-SEQC SKIN LESIONS, 2 TO 4 12/06/19 45316-WFBT SKIN LESIONS, 2 TO 4 10/02/20 K6918-NQXJYCBD DYSTROPHIC NAILS ANY # U7853-MGNYAVOO DYSTROPHIC NAILS ANY # B9823-RZFXZLOS DYSTROPHIC NAILS ANY # U5124-CPADFGRS DYSTROPHIC NAILS ANY # N7004-SFAGYFAO DYSTROPHIC NAILS ANY # Next Appt Details Provider Name:Rafaela Varela , 10/11/2025 09:00:00 AM, [address] [facility], [place], [address], Insurance Providers Payer Name Payer Address Payer Phone Subscriber Number Group Number Insured Name Patient Relationship to Insured Coverage Start Date Coverage End Date [facility] [employer] Claims [address] JOYCELYN Thomson [id number] Giovana Theodore Self - patient is the insured Medical (General) History Medical History History ICD Code Diabetic High Blood Pressure Chicken pox Surgical History Surgery Date(Month/Year) Gall bladder removal
--- OUTSIDE RECORDS SUMMARY | 2025-08-08 08:03 | XMS_ITS | Encounter Summary ---
Author Organization [employer] Address [address] [place] [address] 7 [place] [address] Care Team Providers Care Switchboard Wirer Name Role Phone Tony Mejias MD Primary Care Provide r Encounter Details Date Type Department Care Team (Late st Contact Info) Description 07/21/2023 Abstract [facility] ADULT DENTAL [address] [place] [address] Lisa Ruiz [address] [place] [address] Social History Tobacco Use Types Packs/Day Years [...] Description 08/28/2025 3:00 PM EDT Office [facility] [address] [place], [place] [phone] Amado Vincent DMD [address] [place] [address] 10/01/2025 10:15 AM EST Office Visit [facility] ADULT DENTAL [address] [place] [address] Lisa Ruiz [address] [place] [address] documented as of this encounter Visit Diagnoses Not on filedocumented in this encounter Care Teams Switchboard Wirer Relationship Specialty Start Date End Date Tony Mejias MD [address] [place] [address] PCP - General Internal Medicine 07/29/14 documented as of this encounter
--- OUTSIDE RECORDS SUMMARY | 2025-08-08 08:03 | XMS_ITS | Encounter Summary ---
Author Organization [facility], Address [address] [place] [address] Phone Care Team Providers Care Inpatient Pharmacist Name Role Phone Tony Castaneda MD Primary Care Provider Unav ailable Encounter Details Date Type Department Care Team (Late st Contact Info) Description 01/04/2025 Documentation Only [facility] [address] [place] [address] Angelita Grimm [address] [place] [address] Social History Tobacco Use Types [...] Visit [facility] [address] [place] [address] Chandan Pa MD [address] [place] [address] [place] [address] documented as of this encounter Visit Diagnoses Not on filedocumented in this encounter Care Teams Inpatient Pharmacist Relationship Specialty Start Date End Date Tony Castaneda MD PCP - General 09/11/19 documented as of this encounter
--- OUTSIDE RECORDS SUMMARY | 2025-08-08 08:03 | XMS_ITS | Encounter Summary ---
Author Organization [employer] Address [address] [place] [address] 7 [place] [address] Care Team Providers Care Overhauler Helper Name Role Phone Tony Mejias MD Primary Care Provide r Encounter Details Date Type Department Care Team (Late st Contact Info) Description 03/10/2023 Abstract [facility] MEDICINE [address] [place] [address] Tony Mejias MD [address] [place] [address] Social History Tobacco Use Types Packs/Day Years [...] Description 08/28/2025 3:00 PM EDT Office Visit [facility] ADULT DENTAL [address] [place] [address] Amado Vincent DMD [address] [place] [address] 10/01/2025 10:15 AM EST Office Visit [facility]ULT [facility] [address] [place] [address] Lisa Ruiz [address] [place] [address] documented as of this encounter Procedures Procedure Name Priority Date/Time Associated Diagnosis Comments HM COLONOSCOPY Routine 12/09/2019 documented in this encounter Results * Hm Colonoscopy (12/09/2019) Colonoscopy Normal Normal 12/09/2019 Narrative Nazia, Renae - 12/09/2019 2:27 PM EST Recommended 10 year follow up ( see scanned notes) Historical Provider HEALTH MAINTENANCE Edited Result - Final documented in this encounter Visit Diagnoses Not on filedocumented in this encounter Care Teams Overhauler Helper Relationship Specialty Start Date End Date Tony Mejias MD [address] [place] [address] PCP - General Internal Medicine 07/29/14 documented as of this encounter
--- OUTSIDE RECORDS SUMMARY | 2025-08-08 08:03 | XMS_ITS | Encounter Summary ---
Author Organization [employer] Address [address] [facility] 7 [place] [address] Care Team Providers Care Biometry Teacher Name Role Phone Tony Mejias MD Primary Care Provide r Reason for Visit * Reason Onset Date Comments Results 07/30/2024 Encounter Details Date Type Department Care Team ([facility] st Contact Info) Description 07/30/2024 Telephone [facility] MEDICINE [address] [place], [place] [phone] Tony Mejias MD [address] [place] [address] Results Social History Tobacco Use Types Packs/Day Years Used Date Smoking Tobacco: Never Passive Smoke Exposure: Never Smokeless Tobacco: Never Alcohol Use Standard Drinks/Week Comments Never 0 (1 standard drink = 0.6 oz pur e alcohol) Alcohol Answer Date Recorded Frequency of Alcohol Consumption Not on file 05/03/2024 Average Number of Drinks Not on file 024 Frequency of Binge Drinking Not on file 04/08 Score 0 05/03/2024 Depression Answer Date Recorded Patient Health Questionnaire-9 Score 0 05/03/2024 Patient Health Questionnaire-9 Score 0 05/03/2024 Last PHQ-9: Questionnaire Data Not on file 0 05/03/2024 Housing Stability Answer Date Recorded What is your housing situation today? I have donny glass 12/27/[address] you li ve. Do you have problems with any of the following? None of the above 12/27/2023 Food Insecurity Answer Date Recorded Within the past 12 months, y ou worried that your food would run out before you got money to buy more: Never True 12/27/2023 Within the past 12 months,th e food you bought just didn't last and you didn't have enough money to get more: Never True Transportation Answer Date Recorded In the past 12 months, has l ack of transportation kept you from medical appts, meetings, work or from getting things needed for daily living? No 12/27/2023 Utilities Answer Date Recorded In the past 12 months, has t he electric, gas, oil or water company threatened to shut off services in your home? No 12/27/2023 Depression Answer Date Recorded Patient Health Questionnaire-2 Score 0 05/03/2024 Comments No Sex and Gender Information Value Date Recorded Sex Assigned at Female 09/06/2022 10:22 AM EDT Legal Sex Female 10:22 AM EDT Gender Identity Female 09/06/2022 10:22 AM EDT Sexual Orientation Lesbian or Jeronimo 09/06/2022 10 :22 AM EDT documented as of this encounter Miscellaneous Notes * Telephone Encounter - Panchito Morgan - 07/30/2024 2:35 PM EDT TC from pt requesting call back regarding Results. Type of results: MRI Date when done: 06/26 Facility: [facility] documented in this encounter Plan of Treatment Upcoming Encounters Date Type Department Care Team (Late st Contact Info) Description 08/28/2025 3:00 PM EDT Office Visit [facility] ADULT DENTAL [address] [place] [address] Amado Vincent, DMD [address] [place] [address] 10/01/2025 10:15 AM EST Office Visit [facility] ADULT DENTAL [address] [place] [address] Sara Lisa [address] [place] [address] documented as of this encounter Visit Diagnoses Not on filedocumented in this encounter Additional Health Concerns Assessment Noted Time PHQ-9 Depression Total Score: 0 05/03/20 10:06 AM EDT documented as of this encounter Care Teams Biometry Teacher Relationship Specialty Start Date End Date Tony Mejias MD [address] [place] [address] PCP - General Internal Medicine 07/29/14 documented as of this encounter
--- OUTSIDE RECORDS SUMMARY | 2025-08-08 08:03 | XMS_ITS | Encounter Summary ---
Author Organization [facility], Address [address] [place] [address] Phone Care Team Providers Care Oracle Bpm Consultant Name Role Phone Tony Castaneda MD Primary Care Provider Unav ailable Encounter Details Date Type Department Care Team (Late Contact Info) Description 04/20/2022 Documentation Only [facility] [address] [place] [address] Chandan Pa MD [address] [place] [address] [place] [address] Social History Tobacco Use Types Packs/Day Years [...] Visit [facility] [address] [place] [address] Chandan Pa MD [address] [place] [address] documented as of this encounter Visit Diagnoses Not on filedocumented in this encounter Care Teams Oracle Bpm Consultant Relationship Specialty Start Date End Date Tony Castaneda MD PCP - General 09/11/19 documented as of this encounter
--- OUTSIDE RECORDS SUMMARY | 2025-08-08 08:03 | XMS_ITS | Encounter Summary ---
Author Organization [employer] Address [address] [place] [address] 7t [place] [address] Care Team Providers Care Equipment Validation Engineer Name Role Phone Tony Mejias MD Primary Care Provide r Encounter Details Date Type Department Care Team (Late Contact Info) Description 12/02/2022 Telephone [facility] MEDICINE [address] [place], [place] [phone] Tony Mejias MD [address] [place] [address] Social History Tobacco Use Types Packs/Day Years Used Date Smoking Tobacco: Never Smokeless Tobacco: Never Comments Unknown Sex and Gender Information Value Date Recorded Sex Assigned at Female 09/06/2022 10:22 AM EDT Legal Sex Female 10:22 AM EDT Gender Identity Female 09/06/2022 10:22 AM EDT Sexual Orientation Lesbian or Jeronimo 09/06/2022 10 :22 AM EDT COVID-19 Exposure Response Date Recorded In the last 10 days, have yo u been in contact with someone who was confirmed or suspected to have Coronavirus/COVID-19? No / Unsure 11/30/2022 1:12 PM EST documented as of this encounter Plan of Treatment Upcoming Encounters Date Type Department Care Team (Late st Contact Info) Description 08/28/2025 3:00 PM EDT Office Visit [facility] ADULT DENTAL [address] [place], [place] [phone] Amado Vincent, DMD [address] [place], [place] [phone] 10/01/2025 10:15 AM EST Office Visit [facility] ADULT DENTAL [address] [place], [place] [phone] Lisa Ruiz [address] [place] [address] documented as of this encounter Visit Diagnoses Not on filedocumented in this encounter Care Teams Equipment Validation Engineer Relationship Specialty Start Date End Date Tony Mejias MD [address] [place] [address] PCP - General Internal Medicine 07/29/14 documented as of this encounter
--- OUTSIDE RECORDS SUMMARY | 2025-08-08 08:03 | XMS_ITS | Clinical Summary ---
Author Organization [facility] Address [address] [facility] [place] [address] Phone Care Team Providers Care Hcc Coders Name Role Phone Tony Hall MD Primary Care Provide r Allergies No known active allergies Medications No known medications Active Problems Problem Noted Date Diagnosed Date Diabetes 04/21/2015 Obesity 04/21/2015 Obstructive sleep apnea syndrome 04/21/2015 Family History Medical History Relation Comments Prostate cancer Paternal Grandfather Diabetes type II Paternal Grandmother Relation Status Comments Paternal Grandfather Paternal Grandmother Social History Tobacco Use Types Packs/Day Years Used Date Smoking Tobacco: Never Alcohol Use Standard Drinks/Week Comments No 0 (1 standard drink = 0.6 oz pur e alcohol) Education Answer Date Recorded Are you interested in more education? Not on erica e 03/04/2023 Are you concerned about learning? Not on file 03/04/2023 No 03/04/2023 No 03/04/2023 Digital Access Answer Date Recorded No 04/04/2023 No 04/04/2023 No 04/04/2023 Reliable internet access at home? Not on file 04/04/2023 Device with a working camera? Not on file Comments Unknown Sex and Gender Information Value Date Recorded Sex Assigned at Not on file Legal Sex Female 2:24 PM EDT Gender Identity Not on file Sexual Orientation Not on file Last Filed Vital Signs Vital Sign Reading Time Taken Comments Blood Pressure 184/101 04/21/2015 10:32 AM EDT Pulse 75 04/21/2015 10:32 AM EDT Temperature - - Respiratory Rate - - Oxygen Saturation 99% 04/21/2015 10:32 AM EDT Inhaled Oxygen Concentration - - Weight 109.5 kg (241 lb 8 oz) 04/21/2015 10:32 A M EDT Height 168.9 cm (5' 6.5 ) 04/21/2015 10:32 AM ED T Body Mass Index 38.4 04/21/2015 10:32 AM EDT Plan of Treatment Health Maintenance Due Date Last Done Comments BLOOD PRESSURE 1971 SMOKING Hx and SMOKELESS TOBACCO SCREENING 1984 HEPATITIS C SCREENING 1989 HIV ONE-TIME SCREENING (18-6 5 YEARS) 1989 LIPID PANEL 1989 PNEUMOCOCCAL VACCINES (50+ years) (1 of 2 - PCV) 1990 PAP SMEAR 1992 DIABETIC EYE EXAM 04/21/2015 URINE MICROALBUMIN/CREATININ E RATIO 04/21/2015 DEPRESSION SCREENING 04/21/2016 04/21/2015, 04/21/2015 COLOGUARD 2016 COLONOSCOPY 2016 COLORECTAL CANCER SCREENING 2016 FIT TEST 2016 FOBT 2016 SIGMOIDOSCOPY 2016 VIRTUAL COLONOSCOPY 2016 ZOSTER VACCINES (1 of 2) 2021 HEMOGLOBIN A1C 06/27/2023 12/28/2022 INFLUENZA VACCINE (#1) 2025 MAMMOGRAM 06/24/2025 06/24/2023 COVID-19 VACCINE (1 - 2023-2 5 season) 2025 Adult Td,Tdap Booster 01/04/2027 01/04/2017 HEPATITIS A VACCINES Aged Out No long er eligible based on patient's age to complete this topic HIB VACCINES Aged Out No longer eligi ble based on patient's age to complete this topic MENINGOCOCCAL VACCINES (ACWY) Aged Out No longer eligible based on patient's age to complete this topic MENINGOCOCCAL VACCINES (B) Aged Out N o longer eligible based on patient's age to complete this topic Medical Devices Not on file Insurance [employer] MEDICARE REPLACEMENT [place] [id number] [place] [id number] [employer] MEDICARE [place] [address] CARE MEDICARE REPLACEMENT [address] [address] [place] [address] [address] [place] [address] ONE CARE MEDICARE REPLACEMENT [facility] ONE CARE MEDICARE REPLACEMENT Care Teams Hcc Coders Relationship Specialty Start Date End Date Tony Hall MD [address] [place] [address] [address] [place] [phone] [email or web address] PCP - General 03/13/15 Additional Source Comments The information contained in this document represents components of the legal health record. It is not the complete legal health record.[facility]
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
--- OUTSIDE RECORDS SUMMARY | 2025-08-08 08:03 | XMS_ITS | Encounter Summary ---
Author Organization [employer] Address [address] [facility] 7t [place] [address] Care Team Providers Care Teaseler Name Role Phone Tony Mejias MD Primary Care Provide r Encounter Details Date Type Department Care Team (Late Contact Info) Description 01/07/2023 Abstract [facility] ADULT DENTAL [address] [place] [address] Izabella Cleary DDS [address] [place] [address] Social History Tobacco Use Types Packs/Day Years [...] suspected to have Coronavirus/COVID-19? No / Unsure 01/10/2023 11:08 AM EST documented as of this encounter Plan of Treatment Upcoming Encounters Date Type Department Care Team ([facility] Contact Info) Description 08/28/2025 3:00 PM EDT Office Visit [facility] ADULT DENTAL [address] [place] [address] Amado Vincent DMD [address] [place] [address] 10/01/2025 10:15 AM EST Office Visit [facility] ADULT DENTAL [address] [place] [address] Eric Ruizaris [address] [place] [address] documented as of this encounter Visit Diagnoses Not on filedocumented in this encounter Care Teams Teaseler Relationship Specialty Start Date End Date Tony Mejias MD [address] [place] [address] PCP - General Internal Medicine 07/29/14 documented as of this encounter
--- OUTSIDE RECORDS SUMMARY | 2025-08-08 08:03 | XMS_ITS | Encounter Summary ---
Author Organization [employer] Address [address] [place] [address] 7 [place] [address] Care Team Providers Care Government Documents Librarian Name Role Phone Tony Mejias MD Primary Care Provide r Encounter Details Date Type Department Care Team (Latest Contact Info) Description 06/04/2022 Abstract [facility] CONVERSIONS Dental, Provider, DDS Social History [...] Description 08/28/2025 3:00 PM EDT Office Visit [facility] ADULT DENTAL [address] [place] [address] Amado Vincent, DMD [address] [place] [address] 10/01/2025 10:15 AM EST Office Visit [facility] ADULT DENTAL [address] [place] [address] Lisa Ruiz [address] [place] [address] documented as of this encounter Visit Diagnoses Not on filedocumented in this encounter Care Teams Government Documents Librarian Relationship Specialty Start Date End Date Tony Mejias MD [address] [place] [address] PCP - General Internal Medicine 07/29/14 documented as of this encounter
--- OUTSIDE RECORDS SUMMARY | 2025-08-08 08:03 | XMS_ITS | Encounter Summary ---
Author Organization [facility] Address [address] [place] [address] Phone Care Team Providers Care Endoscopy Specialty Technician Name Role Phone Tony Hall MD Primary Care Provide r Encounter Details Date Type Department Care Team (Latest Contact Info) Description 07/02/2019 Ancillary Orders [facility] [address] [place] [address] [place] [address] Andrea Godwin, DO [address] [place] [address] Chest pain, unspecified type Social History Tobacco Use Types Packs/Day Years [...] as of this encounter Plan of Treatment Not on file documented as of this encounter Results * Holter Monitor 24 Hours (07/02/2019 11:46 AM EDT) Anatomical Region Laterality Modality Heart Other Narrative 07/02/2019 12:19 PM EDT Holter monitor report Indication chest pain Findings: The underlying rhythm is a sinus rhythm with an average heart rate of 71 bpm, minimal heart rate 51 bpm, maximal heart rate 100 bpm. There was no ventricular ectopy. There were very rare isolated premature atrial contractions. Conclusion: Normal Holter monitor. Procedure Note Lawrence Adames MD - 07/02/2019 Holter monitor report Indication chest pain Findings: The underlying rhythm is a sinus rhythm with an average heart rate of 71bpm, minimal heart rate 51 bpm, maximal heart rate 100 bpm. There was no ventricular ectopy. There were very rare isolated premature atrial contractions. Conclusion: Normal Holter monitor. Andrea Godwin DO [facility] ORDERABLE S Final Result documented in this encounter Visit Diagnoses Diagnosis Chest pain, unspecified type Chest pain, unspecified type documented in this encounter Additional Health Concerns Assessment Noted Time PHQ-9 Depression Total Score: 0 04/21/20 10:38 AM EDT PHQ-2 Depression Total Score: 0 04/21/20 10:38 AM EDT documented as of this encounter Care Teams Endoscopy Specialty Technician Relationship Specialty Start Date End Date Tony Hall MD [address] [place] [address] [place] [address] PCP - General 03/13/15 documented as of this encounter Additional Source Comments The information contained in this document represents components of the legal health record. It is not the complete legal health record.[facility]
--- OUTSIDE RECORDS SUMMARY | 2025-08-08 08:03 | XMS_ITS | Encounter Summary ---
Author Organization [facility], Address [address] [place] [address] Phone Care Team Providers Care Clarity Specialists Name Role Phone Tony Castaneda MD Primary Care Provider Unav ailable Encounter Details Date Type Department Care Team (Late Contact Info) Description 07/14/2022 Documentation Only [facility] [address] [place] [address] Blanca Snow PA [address] [place] [address] Social History Tobacco Use Types [...] [facility] [address] [place] [address] Chandan Pa MD [address] [facility] [place] [phone] documented as of this encounter Visit Diagnoses Not on filedocumented in this encounter Care Teams Clarity Specialists Relationship Specialty Start Date End Date Tony Castaneda MD PCP - General 09/11/19 documented as of this encounter
--- OUTSIDE RECORDS SUMMARY | 2025-08-08 08:03 | XMS_ITS | Encounter Summary ---
Author Organization [employer] Address [address] [place] [address] 7 [place] [address] Care Team Providers Care Lead Military Analyst Name Role Phone Tony Mejias MD Primary Care Provide r Reason for Visit * Reason Onset Date Comments appt for crown 05/14/2024 Encounter Details Date Type Department Care Team (Late st Contact Info) Description 05/14/2024 Telephone [facility] ADULT DENTAL [address] [place] [address] Abraham Sinclair, DMD [address] [place] [address] appt for crown Social History Tobacco Use Types Packs/Day Years [...] * Telephone Encounter - Sonam Davis - 05/14/2024 11:[address] Sinclair and front desk monitor Patient looking to schedule appt for crown. Listed as outstanding procedure but appt not requested.She had an appt for a filling falling out on the same tooth but was schedu for only [address] was sick onthat day and unable to come in. Please reach out to patient for scheduling. Sending to Dr. Sinclair as well to active request as not requested. documented in this encounter Plan of Treatment Upcoming Encounters Date Type Department Care Team (Late st Contact Info) Description 08/28/2025 3:00 PM EDT Office Visit [facility] ADULT DENTAL [address] [place] [address] Amado Vincent DMD [address] [place] [address] 10/01/2025 10:15 AM EST Office Visit [facility] ADULT DENTAL [address] [place] [address] SaraLisa [address] [place] [address] documented as of this encounter Visit Diagnoses Not on filedocumented in this encounter Additional Health Concerns Assessment Noted Time PHQ-9 Depression Total Score: 0 05/03/20 24 10:06 AM EDT documented as of this encounter Care Teams Lead Military Analyst Relationship Specialty Start Date End Date Tony Mejias MD [address] [place] [address] PCP - General Internal Medicine 07/29/14 documented as of this encounter
--- OUTSIDE RECORDS SUMMARY | 2025-08-08 08:03 | XMS_ITS | Encounter Summary ---
Author Organization [employer] Address [address] [place] [address] 7 [place] [address] Care Team Providers Care Cook Fish And Chips Name Role Phone Tony Mejias MD Primary Care Provide r Encounter Details Date Type Department Care Team (Late st Contact Info) Description 08/30/2023 Abstract [facility] ADULT DENTAL [address] [place] [address] Abraham Sinclair, DMD [address] [place] [address] Social History Tobacco Use Types Packs/Day Years [...] Description 08/28/2025 3:00 PM EDT Office Visit [facility] ADULT DENTAL [address] [place], [place] [phone] Amado Vincent, DMD [address] [place] [address] 10/01/2025 10:15 AM EST Office Visit [facility] ADULT DENTAL [address] [place] [address] Sara Lisa [address] [place] [address] documented as of this encounter Visit Diagnoses Not on filedocumented in this encounter Care Teams Cook Fish And Chips Relationship Specialty Start Date End Date Tony Mejias MD [address] [place] [address] PCP - General Internal Medicine 07/29/14 documented as of this encounter
--- OUTSIDE RECORDS SUMMARY | 2025-08-08 08:04 | XMS_ITS | Clinical Summary ---
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 very difficult to control HTN and extremely liable. patient advised to adhere to a low sodium diet, encouraged about medication compliance, counseled about weight loss. Historical data: Patient was admitted with malignant Hypertension to [facility] on 07/20/2012 with c/o blurred vision. She was initially admitted to the ICU where she received multiple doses of IV antihypertensives in the form of Labetalol. Her in hospital diagnostic work up included and EKG that only showed some non-specific ST -T changes, lytes, Bun and Cr, were wnl, but her UA showed 3 + protein. She was evaluated by nephrology specialist Dr Gutierrez who started a diagnostic work up to r/o secondary causes of hypertension given her young age. So far Her CLAIRE was negative, as well as her SPEP, Complement levels were NOT low. Negative Hepatitis panel, negative anti streptolysin. Urinary metanephrine were low. Normal TSH, negative toxicology screen. Echocardiogram was unrevealing as well as her Chest XRAY. Assessment & Plan (12/28/2022 1:36 PM EST): Elevated Pt tells me at home her BP is controlled She is on a regimen of: Cardizem CD 240 mg po QD, Carvedilol 25 mg po BID, Hydralazine 50 mg po TID and Hctz 12.5 mg po daily ( started at [facility]) She saw nephrology 10/2022 and they agreed to continue to monitor her BP for now 3 month f/u Previously I personally contacted her Kick Press Setter Dr. Pa to discuss her case Dr. Pa. He recommended a second opinion at a tertiary Hospital in [place]. She was seen by Dr. Bradford [employer]ter on 02/03/2015 and subsequently on 04/11/2015 Most recent electrolytes, Bun and Creatinine done on: 03/22/2018 at the office of Dr Pa were wnl. CXRAY done on:07/26/2014 showed: NAD. Of note previous work up back in 2011 included a Urinary Metanephrine that were wnl. Of note Pt with very difficult to control HTN and extremely liable. patient advised to adhere to a low sodium diet, encouraged about medication compliance, counseled about weight loss. Historical data: Patient was admitted with malignant Hypertension to [facility] on 07/20/2012 with c/o blurred vision. She was initially admitted to the ICU where she received multiple doses of IV antihypertensives in the form of Labetalol. Her in hospital diagnostic work up included and EKG that only showed some non-specific ST -T changes, lytes, Bun and Cr, were wnl, but her UA showed 3 + protein. She was evaluated by nephrology specialist Dr Gutierrez who started a diagnostic work up to r/o secondary causes of hypertension given her young age. So far Her CLAIRE was negative, as well as her SPEP, Complement levels were NOT low. Negative Hepatitis panel, negative anti streptolysin. Urinary metanephrine were low. Normal TSH, negative toxicology screen. Echocardiogram was unrevealing as well as her Chest XRAY. Hirsutism 09/09/2015 Assessment & Plan (12/27/2023 8:22 AM EST): Previous work up included Testosterone levels by LC/MS , HCG, Prolactin, FSH, TSH. She has within normal limits. Of note CT 07/16/14 showed no adrenal masses, and pelvic US done on 02/2014 Nl. Pt was interested in a second opinion. Pt was seen by endocrinology 12/03/2017 who had no further recommendations Last seen by Dermatology 11/15/2023 Assessment & Plan (12/28/2022 8:20 AM EST): Previous work up included Testosterone levels by LC/MS , HCG, Prolactin, FSH, TSH. She has within normal limits. Of note CT 07/16/14 showed no adrenal masses, and pelvic US done on 02/2014 Nl. Pt was interested in a second opinion. Pt was seen by endocrinology 12/03/2017 who had no further recommendations Obstructive sleep apnea syndrome 11/28/2014 Assessment & Plan (12/28/2022 8:21 AM EST): Pt with a Hx of sleep disturbances, and difficult to control HTN as well as obesity, sleep study done on 10/28/2014 showed moderately severe BARBARA Pt Utilizing her Cpap. Anemia 09/03/2013 Diabetes mellitus, type II 07/28/2012 Assessment & Plan (03/28/2025 10:58 AM EDT): Pt is here for DM controlled She is on a regimen of Glipizide 5 mg po BID , Off Metformin XR Hgb A1c 03/28/2025 : 6.8 Last Eye exam on record was done on: 03/05/2025 Dx with stable proliferative diabetic retinopathy L>R as well as Glaucoma suspect.under [facility]. Microalbumin 12/13/2024: 56 Pt was on an AISSATOU inhibitor. But we held it due to elevated Cr. ( Previously I discussed this with pt's Kick Press Setter Dr. Pa over the phone who agreed with course of action ) Plan: Continue current regimen 4 month f/u Foot check not done Pt reports compliance with aspirin 81 mg po daily. Pt advised to: adhere to diabetic diet check your blood sugars regularly check your feet on a daily basis Assessment & Plan (09/04/2024 10:29 AM EDT): Pt is here for DM controlled She is on a regimen of Glipizide 5 mg po BID Off Metformin XR Hgb A1c 09/04/2024: 6.4 Last Eye exam on record was done on: 05/19/[address] Lala, pt was Dx with stable proliferative diabetic retinopathy L>R as well as Glaucoma suspect. He recommended repeat CEE,OCT and Visual Bonilla under the supervision of [facility]. Pt tells me she follows with retinal specialist regularly, records requested Microalbumin 07/05/2022 was 32 Pt was on an AISSATOU inhibitor. But we held it due to elevated Cr. ( Previously I discussed this with pt's Kick Press Setter Dr. Pa over the phone who agreed with course of action ) Plan: Continue current regimen 4 month f/u Foot check not done Pt reports compliance with aspirin 81 mg po daily. Pt advised to: adhere to diabetic diet check your blood sugars regularly check your feet on a daily basis Assessment & Plan (05/03/2024 10:09 AM EDT): Pt is here for DM controlled She is on a regimen of Glipizide 5 mg po BID Off Metformin XR Hgb A1c 05/03/2024: 6.8 Last Eye exam on record was done on: 05/19/[address] Lala, pt was Dx with stable proliferative diabetic retinopathy L>R as well as Glaucoma suspect. He recommended repeat CEE,OCT and Visual Bonilla under the supervision of [facility]. Pt tells me she follows with retinal specialist regularly, records requested Microalbumin 07/05/2022 was 32 Pt was on an AISSATOU inhibitor. But we held it due to elevated Cr. ( Previously I discussed this with pt's Kick Press Setter Dr. Pa over the phone who agreed with course of action ) Plan: Continue current regimen 4 month f/u Foot check not done Pt reports compliance with aspirin 81 mg po daily. Pt advised to: adhere to diabetic diet check your blood sugars regularly check your feet on a daily basis Assessment & Plan (12/27/2023 9:45 AM EST): Pt is here for DM controlled She is on a regimen of Glipizide 5 mg po BID and Metformin XR 500 mg po daily Hgb A1c 12/27/2023: 6.6 Last Eye exam on record was done on: 05/19/[address] Lala, pt was Dx with stable proliferative diabetic retinopathy L>R as well as Glaucoma suspect. He recommended repeat CEE,OCT and Visual Bonilla under the supervision of [facility]. Pt tells me she follows with retinal specialist regularly, records requested Microalbumin 07/05/2022 was 32 Pt was on an AISSATOU inhibitor. But we held it due to elevated Cr. ( Previously I discussed this with pt's Kick Press Setter Dr. Pa over the phone who agreed with course of action ) Pt today is requesting to stop Metformin, she is concerned about skilled nursing side effects of continued use of Metformin. I discussed with her that Metformin is a safe medication and that I would much rather taper her sulfonylurea before we would consider stopping the Metformin. Pt insisted she would like to stop the Metformin and monitor for at least a quarter and see what happens. Plan: Pt will stop the Metformin as per her request and next time she comes in will repeat her Hgb A1c and discuss further 4 month f/u Foot check not done Pt reports compliance with aspirin 81 mg po daily. Pt advised to: adhere to diabetic diet check your blood sugars regularly check your feet on a daily basis Assessment & Plan (12/28/2022 10:32 AM EST): Pt is here for DM controlled She is on a regimen of Glipizide 5 mg po BID and Metformin XR 500 mg po daily Hgb A1c 12/28/2022 was 7 Last Eye exam on record was done on: 05/19/[address] Lala, pt was Dx with stable proliferative diabetic retinopathy L>R as well as Glaucoma suspect. He recommended repeat CEE,OCT and Visual Bonilla under the supervision of [facility] Microalbumin 07/05/2022 was 32 Pt was on an AISSATOU inhibitor. But we held it due to elevated Cr. ( Previously I discussed this with pt's Kick Press Setter Dr. Pa over the phone who agreed with course of action ) Plan: No changes to her regimen. 4 month f/u Foot check not done Pt reports compliance with aspirin 81 mg po daily. Pt advised to: adhere to diabetic diet check your blood sugars regularly check your feet on a daily basis Class 2 severe obesity due t o excess calories with serious comorbidity and body mass index (BMI) of 36.0 to 36.9 in adult 07/28/2012 Assessment & Plan (03/28/2025 10:19 AM EDT): Patient has been counseled and educated about diet and exercise. Personal goal of weight loss discussed Assessment & Plan (12/28/2022 10:23 AM EST): Patient has been counseled and educated about diet and exercise. Personal goal of weight loss discussed Proteinuria 07/28/2012 Encounters Date Type Department Care Team Description 07/25/2025 Telephone [facility] [address] [place] [address] Louie Rowe DDS 07/22/2025 1:00 PM EDT Office Visit [facility] [address] [place] [address] Louie Rowe DDS Dental abscess (Primary Dx) 07/16/2025 9:00 AM EDT Office Visit [facility] [address] [place] [address] Silvio Fleming DDS 07/12/2025 Telephone [facility] [address] [place] [address] Challa calrification on treatment plan 07/09/2025 11:30 AM EDT Office Visit [facility] [address] [place] [address] Silvio Fleming DDS 07/05/2025 10:00 AM EDT Office Visit [facility] [address] [place] [address] Abraham Sinclair, JN Open margin on tooth holiness (Primary Dx); Advanced periodontitis 05/23/2025 Refill [facility] [address] [place] [address] Tony Mejias MD 05/23/2025 Refill [facility] [address] [place] [address] Name, MD Brent from Last 3 Months Immunizations Immunization Administration Dates Next Due Tdap 01/04/2017 Social History Tobacco Use Types Packs/Day Years Used Date Smoking Tobacco: Never Passive Smoke Exposure: Never Smokeless Tobacco: Never Tobacco Cessation:Counseling Given: Not Answered Alcohol Use Standard Drinks/Week Comments Never 0 [...] or Jeronimo 09/06/2022 10 :22 AM EDT Last Filed Vital Signs Vital Sign Reading Time Taken Comments Blood Pressure 158/88 07/16/2025 9:10 AM EDT Pulse 67 03/28/2025 9:57 AM EDT Temperature 36.1 C (96.9 F) 03/28/2025 9:57 AM EDT Respiratory Rate 20 03/28/2025 9:57 AM EDT Oxygen Saturation 99% 03/28/2025 9:57 AM EDT Inhaled Oxygen Concentration - - Weight 102 kg (224 lb) 03/28/2025 9:57 AM EDT Height 167.6 cm (5' 6 ) 03/28/2025 9:57 AM EDT Body Mass Index 36.15 03/28/2025 9:57 AM EDT Plan of Treatment Upcoming Encounters Date Type Department Care Team (Late st Contact Info) Description 08/28/2025 3:00 PM EDT Office Visit [facility] [address] [place] [address] Amado Vincent, DMD [address] [place] [address] 10/01/2025 10:15 AM EST Office Visit [facility] ADULT [facility] [address] [place] [address] Sara, Lisa [address] [place] [address] Health Maintenance Due Date Last Done Comments CT Colonography 1971 FIT DNA/Cologuard 1971 FIT 1971 FOBT 1971 HIV Screening 1971 Sigmoidoscopy 1971 Diabetes: Foot Exam 1981 Eye Exam 1981 Hepatitis C Screening 1989 Hepatitis A Vaccines (1 of 2 - Risk 2-dose series) 1990 Hepatitis B Vaccines (1 of 3 - 19+ 3-dose series) 1990 Pneumococcal Vaccine: 50+ Years (1 of 2 - PCV) 1990 Zoster Vaccines (1 of 2) 2021 Cervical Cancer Screening 12/23/2022 HPV/Cotest 12/23/2022 12/23/2021, 12/08, 07/19/2018, Additional history exists Pap Smear 12/23/2022 12/23/2021 Lipid Panel 07/05/2023 07/05/2022 Mammogram 06/25/2025 06/25/2024, 06/07, 06/24/2023, Additional history exists COVID-19 Vaccine ( season) 2025 07/03/2021, 06/12/2021 Influenza Vaccine (#1) 2025 Dental Oral Exam 09/20/2025 03/19/2025, , 07/01/2023, Additional history exists Dental Prophylaxis 09/20/2025 03/19/2025, 1 11/18/2023, 02/21/2024, Additional history exists Diabetes: Hemoglobin A1C 09/28/2025 025, 09/04/2024, 05/03/2024, Additional history exists Alcohol/Substance Use Screening 03/28/2026 03/28/2025 Depression Screening 03/28/2026 03/28/2025, 03/28/20 25 Disability Screening 03/28/2026 03/28/2025 SDOH Screening 03/28/2026 03/28/2025 Dental X-Ray: Full Mouth 05/17/2026 05/16/2023 Dental X-Ray: Bitewings 07/10/2026 07/09/20 25, 07/05/2025, 03/19/2025, Additional history exists Tobacco Screening 07/22/2026 07/22/2025 DTaP/Tdap/Td Vaccines (2 - Td or Tdap) 01/04/2027 01/04/2017 Colonoscopy 12/09/2029 12/09/2019 Colorectal Cancer Screening 12/09/2029 RSV Patients and Patients Aged 60 years or older (1 - 1-dose 75+ series) 2046 HIB Vaccines Aged Out No longer eligi ble based on patient's age to complete this topic HPV Vaccines Aged Out No longer eligi ble based on patient's age to complete this topic IPV Vaccines Aged Out No longer eligi ble based on patient's age to complete this topic Meningococcal B Vaccine Aged Out No l onger eligible based on patient's age to complete this topic Meningococcal Vaccine Aged Out No madhuri jc eligible based on patient's age to complete this topic RSV under 20 months Aged Out No longe r eligible based on patient's age to complete this topic Rotavirus Vaccines Aged Out No longer eligible based on patient's age to complete this topic Procedures Procedure Name Priority Date/Time Associated Diagnosis Comments NO CHARGE VISIT Routine 07/22/2025 1:00 PM EDT RE-EVAL - POST-OP OFFICE VISIT Routine 07/16/2025 9:00 AM EDT CASE PRESENTATION, DETAILED AND EXTENSIVE TREATMENT PLANNING Routine 07/09/2025 11:30 AM EDT BITEWING - SINGLE RADIOGRAPHIC IMAGE Routine 07/09/2025 11:30 AM EDT 14 INTRAORAL - PERIAPICAL FIRST RADIOGRAPHIC IMAGE Routine 07/09/2025 11:30 AM EDT 13,14 LIMITED ORAL EVALUATION - PROBLEM FOCUSED Routine 07/09/2025 11:30 AM EDT CASE PRESENTATION, DETAILED AND EXTENSIVE TREATMENT PLANNING Routine 07/05/2025 10:00 AM EDT INTRAORAL - PERIAPICAL FIRST RADIOGRAPHIC IMAGE Routine 07/05/2025 10:00 AM EDT BITEWING - SINGLE RADIOGRAPHIC IMAGE Routine 07/05/2025 10:00 AM EDT PALLIATIVE (EMERGENCY) TREATMENT OF DENTAL PAIN - MINOR PROCEDURE Routine 07/05/2025 10:00 AM EDT POCT GLYCATED HEMOGLOBIN, TOTAL Routine 03/28/2025 10:00 AM EDT Type 2 diabetes mellitus with stage 3a chronic kidney disease, without long-term current use of insulin ([facility]) PROPHYLAXIS - ADULT Routine 03/19/2025 1 0:00 AM EDT Dental calculus Periodontal disease PERIODIC ORAL EVALUATION - ESTABLISHED PATIENT Routine 03/19/2025 10:00 AM EDT BI MAMMOGRAM SCREENING TOMOSYNTHESIS BILATERAL Routine 06/25/2024 11:15 AM EDT PANORAMIC RADIOGRAPHIC IMAGE Routine 05/16/2023 11:30 AM EDT LIPID PANEL, STANDARD Routine 07/05/2022 8:34 AM EDT HPV GENOTYPES 16,18/45 Routine 10:09 AM EST THINPREP IMAGING PAP AND HPV MRNA E6/E7 WITH REFLEX TO HPV 16,18/45 Routine 12/23/2021 10:09 AM EST HM COLONOSCOPY Routine 12/09/2019 from Last 3 Months or Most Recently Relevant to Health Maintenance Results * (ABNORMAL) POCT HGB A1C (03/28/2025 10:00 AM EDT) Hemoglobin A1C 6.8(A) 4.0 - 6.0 % QC Media Lot # [id number] Lot# Expiration Date Blood 03/28/2025 10:0 0 AM EDT Tony Morgan MD POINT OF CARE TEST EN TER/EDIT ORDERABLES Final Result * BI Mammogram Screening Tomosynthesis Bilateral (06/25/2024 11:15 AM EDT) Anatomical Region Laterality Modality Breast Bilateral Mammography 06/25/2024 11:1 5 AM EDT Narrative 07/23/2024 10:00 AM EDT [facility] [address] [place] [address] Mammography Report Signed Patient: Giovana Theodore MR#: [id number] : 1970 Acct:[id number] Age/Sex: 53 / F ADM Date: 06/25/24 Loc: [facility] Attending Dr: Tony Hall MD Ordering Physician: Tony Hall MD Resu lts: 1Negative Date of Service: 06/25/24 Follow Up: 1 Year From Orig inal Mammogram Procedure(s): MM tomosynthesis screening BI Accession Number(s): [id number] cc: Tony Hall MD EXAMINATION: MM SCREENING DIGITAL BREAST TOMOSYNTHESIS, BILATERAL CLINICAL INFORMATION: Screening. Asymptomatic. COMPARISON: Mammography: This study is compared with prior exams dating back to 2019. TECHNIQUE: Digital breast tomosynthesis is performed in both the craniocaudal and mediolateral oblique views along with computer-aided detection (CAD). Synthesized 2D images are generated from the tomosynthesis. FINDINGS: There are scattered areas of fibroglandular density (ACR BI-RADS breast composition Category b). There are no significant masses, abnormal calcifications, or other abnormalities. MM/MM tomosynthesis screening BI IMPRESSION: No mammographic evidence of malignancy. ASSESSMENT: BI-RADS BI-RADS 1 - Negative RECOMMENDATION: Routine annual mammography screening. 1 year F/U This examination should not preclude the clinical evaluation of a suspicious palpable abnormality. This patient's information was entered into a reminder system with a target due date for their next mammogram. Electronically signed by: Lety Hauser MD 07/23/2024 09:57 AM EDT Dictated By: Lety Hauser MD Signed By: <Electronically signed by Lety Hauser MD in OV> 07/23/24 0957 DD/ 1115 TD/TT: 06/25/24 1135 Make Up Operator: Procedure Note Donotuseinterpreter, Image - 07/23/2024 [facility] [address] [place] [address] Mammography Report Signed Patient: Giovana TheodoreMR#: [id number] : 1970Acct:[id number] Age/Sex: 53 / FADM Date: 06/25/24 Loc: [facility] Attending Dr: Tony Hall MD Ordering Physician: Tony Hall MDResu lts: 1Negative Date of Service: 06/25/24Follow Up: 1 Year From Orig inal Mammogram Procedure(s): MM tomosynthesis screening BI Accession Number(s): [id number] cc: Tony Hall MD EXAMINATION: MM SCREENING DIGITAL BREAST TOMOSYNTHESIS, BILATERAL CLINICAL INFORMATION: Screening. Asymptomatic. COMPARISON: Mammography: This study is compared with prior exams dating back to 2019. TECHNIQUE: Digital breast tomosynthesis is performed in both the craniocaudal and mediolateral oblique views along with computer-aided detection (CAD). Synthesized 2D images are generated from the tomosynthesis. FINDINGS: There are scattered areas of fibroglandular density (ACR BI-RADS breast composition Category b). There are no significant masses, abnormal calcifications, or other abnormalities. MM/MM tomosynthesis screening BI IMPRESSION: No mammographic evidence of malignancy. ASSESSMENT: BI-RADS BI-RADS 1 - Negative RECOMMENDATION: Routine annual mammography screening. 1 year F/U This examination should not preclude the clinical evaluation of a suspicious palpable abnormality. This patient's information was entered into a reminder system with a target due date for their next mammogram. Electronically signed by: Lety Hauser MD 07/23/2024 09:57 AM EDT Dictated By: Lety Hauser MD Signed By: <Electronically signed by Lety Hauser MD in OV> 07/23/24 0957 DD/ 1115 TD/TT: 06/25/24 1135 Make Up Operator: us Tony Morgan MD IMG BI PROCEDURES Diogenes hudson Result - Final * (ABNORMAL) LIPID PANEL, STANDARD (07/05/2022 8:34 AM EDT) Chol/HDLC Ratio 4.2 <5.0 (calc) [facility] Cholesterol, Total 148 <200 mg/dL [facility] HDL Cholesterol 35(L) > OR = 50 mg/dL [facility] LDL Cholesterol 88 mg/dL (calc) [facility] Comment: Reference range: <100 Desirable range <100 mg/dL for primary prevention; <70 mg/dL for patients with CHD or diabetic patients with > or = 2 CHD risk factors. LDL-C is now calculated using the Fly-Tiwari calculation, which is a validated novel method providing better accuracy than the Friedewald equation in the estimation of LDL-C. Fly SS et al. HUMERA. 2013;310(19): 0905-2426 (http://education.Mediameeting.SkillHound/faq/UZL731) Non-HDL Cholesterol 113 <130 mg/dL (calc) [facility] Comment: For patients with diabetes plus 1 major ASCVD risk factor, treating to a non-HDL-C goal of <100 mg/dL (LDL-C of <70 mg/dL) is considered a therapeutic option. Triglycerides 146 <150 mg/dL [facility] 07/05/2022 8:34 AM EDT us Tony Morgan MD LAB BLOOD ORDERABLES Final Result [facility] [address] * (ABNORMAL) THINPREP TIS PAP AND HPV mRNA E6/E7 WITH REFLEX TO HPV 16,18/45 (12/23/2021 10:09 AM EST) Clinical Information: None given [facility] COMMENT SEE COMMENT [facility] Comment: EXPLANATORY NOTE: The Pap is a screening test for cervical cancer. It is not a diagnostic test and is subject to false negative and false positive results. It is most reliable when a satisfactory sample, regularly obtained, is submitted with relevant clinical findings and history, and when the Pap result is evaluated along with historic and current clinical information. COMMENT: This Pap test has been evaluated with computer assisted technology. [facility] News Department Intern: SEE COMMENT [facility] Comment: BLC,CT(ASCP) CT screening location: [place] [address] HPV nRNA E6/E7 Detected(A) Not Detected [facility] Comment: Methodology: Assessment Analyst-Mediated Amplification This assay detects E6/E7 viral messenger RNA (mRNA) from 14 high-risk HPV types (16,18,31,33,35,39,45,51,52,56,58,59,66,68). The analytical performance characteristics of this assay have been determined by [email or web address]. The modifications have not been cleared or approved by the FDA. This assay has been validated pursuant to the CLIA regulations and is used for clinical purposes. For additional information, please refer to http://education.Thumb/faq/OJV749z7 (This link if provided for information/ educational purposes only.) Infection Shift in vaginal stephen suggestive of bacterial vaginosis. [facility] Interpretation/Re sult: Negative for intraepithelial lesion or malignancy. [facility] LMP: 12/15/21 [facility] Prev. BX: 2018 [facility]G [facility] Prev. PAP: 2017 NIL,HPV+ [facility]OUND [facility] Review News Department Intern: SEE COMMENT [facility] Comment: GUERIN, CT(ASCP) CT screening location: [place] [address] SOURCE: None given [facility] Statement Of Adequacy: SEE COMMENT [facility] Comment: Satisfactory for evaluation. Endocervical/transformation zone component absent. 12/23/2021 10:0 9 AM EST Zoie Bird [facility] LAB PATHOLOGY ORDERABLES Final Result Performing Organization Address [facility] de Phone Number [facility] [address] [place] [address], * HPV GENOTYPES 16,18/45 (12/23/2021 10:09 AM EST) Pathologist [facility] HPV 16 RNA NOT DETECTED NOT DETECTED [facility] HPV 18/45 RNA NOT DETECTED NOT DETECTED [facility] Comment: Methodology: Assessment Analyst Mediated Amplification The analytical performance characteristics of this assay have been determined by [email or web address]. The modifications have not been cleared or approved by the FDA. This assay has been validated pursuant to the CLIA regulations and is used for clinical purposes. 12/23/2021 10:[address] [facility] [facility] ORDERABLES F inal Result Performing Organization Address [facility] Co de Phone Number [facility] [address] [place] [address], * Hm Colonoscopy (12/09/2019) Colonoscopy Normal Normal 12/09/2019 Renea Morris - 12/09/2019 2:27 PM EST Recommended 10 year follow up ( see scanned notes) us Historical Provider HEALTH MAINTENANCE Edited Result - Final from Last 3 Months or Most Recently Relevant to Health Maintenance Insurance [facility] 66 [facility] DENTAL - [facility] Care Teams Data Entry Machine Operator Relationship Specialty Start Date End Date Tony Mejias MD [address] [place] [id number] PCP - General Internal Medicine 07/29/14
== END 2025-08-08 08:00 | disposition home or self-care (01) ==
LOC: HO.MAMMO 07:59
PROVIDERS: PCP Internal Medicine; Visit Provider Internal Medicine
DX: Z12.31 Encounter for screening mammogram for malignant neoplasm of breast (principal)
CPT/HCPCS: 77063; 77067

== ENCOUNTER → 2025-08-08 08:15 | Outpatient (BNV) | payer OTHER, SELFPAY | PROVIDERS: PCP Internal Medicine; Visit Provider Internal Medicine | DX: Z12.31 Encounter for screening mammogram for malignant neoplasm of breast (principal) | CPT/HCPCS: 77063; 77067 ==